=== PATIENT | female | born 1990 | race Two or more races ===

== ENCOUNTER 2016-03-22 09:21 | Emergency (ER) | payer MEDICAID, OTHER ==
[2016-03-22 09:27] VITALS: RESP 16
--- NOTE | 2016-03-22 09:48 | EDPHY ---
H & P Stated Complaint: heavy vaginal bleeding and cramps Time Seen by Provider: 03/22/16 09:45 HPI/ROS: CHIEF COMPLAINT: Vaginal bleeding HISTORY OF PRESENT ILLNESS: This patient is a 25 year old woman, with a history of ectopic and uterine fibroids, presenting with heavy vaginal bleeding, onset three days ago. Bleeding is moderate in volume/severity , using one pad every 30 minutes - 1 hour. It is associated with cramping, back pain, and lightheadedness. She is passing clots. She was evaluated by an GEODETIC ADVISOR three days ago with US and exam at that time. Examination demonstrating enlargement of the fibroid. She has had increased bleeding since the time of that exam. The patient is scheduled for hysterectomy on 04/29/16, scheduled at [facility] in [place]. The patient is post- 4 months. REVIEW OF SYSTEMS: Aside from elements discussed in the HPI, a comprehensive 10-point review of systems was reviewed and is negative. PAST MEDICAL HISTORY: ectopic , unilateral salpingectomy, uterine fibroid, 4 months post-, not nursing. SOCIAL HISTORY: No alcohol recently ALLERGIES: Ceftin and Augmentin VITAL SIGNS: Reviewed by me GENERAL: Well-developed, well-nourished, resting comfortably in no respiratory distress. HEENT: Atraumatic. Eyes: No icterus, no injection. Mouth: moist mucous membranes. No erythema or lesions. Neck: supple with no adenopathy. LUNGS: Clear to auscultation bilaterally, no wheezes, rhonchi or rales. CARDIAC: Regular rate and rhythm, no rubs, murmurs or gallops. ABDOMEN: Soft, nontender, nondistended, bowel sounds normal. BACK: No CVA tenderness. PELVIC: Significant clots in the pelvic vault, which were removed. Blood coming from the os. Left adnexal tenderness on manual exam. EXTREMITIES: No trauma. No edema. Range of motion is normal throughout. NEURO: Alert and oriented, grossly nonfocal. SKIN: Warm and dry, no rash. PSYCHIATRIC: Normal mentation, no agitation. Portions of this note were transcribed by a medical library assistant. I personally performed a history, physical exam, medical decision making, and confirmed accuracy of information the transcribed note. Source: Patient Exam Limitations: No limitations - Personal History LMP (Females 10-55): 22-28 Days Ago Current Tetanus/Diphtheria Vaccine: Unsure Current Tetanus Diphtheria and Acellular Pertussis (TDAP): Unsure - Medical/Surgical History Hx Asthma: No Hx Chronic Respiratory Disease: No Hx Diabetes: No Hx Cardiac Disease: No Hx Renal Disease: No Hx Cirrhosis: No Hx Alcoholism: No Hx HIV/AIDS: No Hx Splenectomy or Spleen Trauma: No Other PMH: previous ectopic // does not use contraceptives,uterine fibroid.Hysterectomy scheduled for 04/01 - Social History Smoking Status: Never smoked Constitutional: Initial Vital Signs Temperature (C) 37.0 C 03/22/16 09:24 Heart Rate 78 03/22/16 09:24 Respiratory Rate 16 03/22/16 09:24 Blood Pressure 108/59 L 03/22/16 09:24 O2 Sat (%) 97 03/22/16 09:24 O2 Delivery Mode Room Air Allergies/Adverse Reactions: No Known Allergies Allergy (Unverified 03/22/16 09:27) Home Medications: Medication Instructions Recorded Hydrocodone/APAP 5/325 [[place] 1 tab PO Q6H PRN #10 tab 03/22/16 5/325 (RX)] IRON,CARBONYL [IRON] 45 mg PO 03/22/16 Turbinophine 03/22/16 medroxyPROGESTERone [Provera 10 mg 10 mg PO DAILY #10 tab 03/22/16 (*)] Medical Decision Making - Diagnostics Imaging: Study: Ultrasound of the: Pelvis Indication: Vaginal bleeding Results: The results of the study are: Intramural uterine leiomyoma with submucosal component (deforming the endometrial lining) has significantly increased in volume since February 2015. Thin endometrial lining. Benign right ovarian cyst. The study was read by the radiologist, Dr. Denton. I viewed the images myself on the PACS system. ED Course/Re-evaluation: The pelvic exam demonstrates significant clot in the vaginal vault. Clot was removed by myself. IV Toradol, TXA, and IV normal saline ordered. Pelvic US demonstrates intramural uterine leiomyoma with submucosal component ( deforming the endometrial lining) has significantly increased in volume since February 2015. GEODETIC ADVISOR paged for consult. 1235: I consulted with Dr. Heard about the patient's condition. She recommends the patient makes an appointment with [place] [facility] [place]. She recommends prescription for Provera 10mg Qday, #10. Plan discussed with the patient who is comfortable with the plan. Reports her bleeding has diminished since the T x-ray. Discharged with [place] to use as needed for severe pain, Provera to help with bleeding, and instructions regarding uses of nonsteroidals. Differential Diagnosis: Differential diagnosis of the patient's vaginal bleeding includes dysfunctional uterine bleeding, trauma, cervicitis, ovarian cysts, uterine fibroids, uterine cancer, cervical cancer, and infection. - Data Points Laboratory Results: Laboratory Results 03/22/16 09:50 03/22/16 09:50 03/22/16 09:50 WBC 6.74 10^3/uL (3.80-9.50) RBC 4.24 10^6/uL (4.18-5.33) Hgb 12.8 g/dL (12.6-16.3) Hct 37.5 L % (38.0-47.0) MCV 88.4 fL (81.5-99.8) MCH 30.2 pg (27.9-34.1) MCHC 34.1 g/dL (32.4-36.7) RDW 13.1 % (11.5-15.2) Plt Count 241 10^3/uL (150-400) Seg Neutrophils % 70 % Band Neutrophils % 2 % Lymphocytes % 25 % Monocytes % 1 % Eosinophils % 2 % Absolute Seg Neuts Not Reported Absolute Band Neuts 0.13 10^3/uL (0.00-0.70) Absolute Lymphocytes 1.69 10^3/uL (1.00-3.00) Absolute Monocytes 0.07 L 10^3/uL (0.30-0.80) Absolute Eosinophils 0.13 10^3/uL (0.03-0.40) Atypical Lymphocytes 1+ H Platelet Estimate ADEQUATE (ADEQ) Polychromasia 1+ H Sodium 142 mEq/L (134-144) Potassium 4.2 mEq/L (3.5-5.2) Chloride 109 mEq/L (97-110) Carbon Dioxide 23 mEq/l (22-31) Anion Gap 10 mEq/L (8-16) BUN 15 mg/dL (7-23) Creatinine 0.6 mg/dL (0.6-1.0) Estimated GFR > 60 Glucose 82 mg/dL (70-100) Calcium 9.2 mg/dL (8.5-10.4) Beta HCG, Quant < 2.39 mIU/mL (0-4.83) Medications Given: Discontinued Medications Sodium Chloride (Ns) 1,000 mls @ 0 mls/hr IV ONCE ONE PRN Reason: Wide Open Stop: 03/22/16 10:52 Last Admin: 03/22/16 10:55 Dose: 1,000 mls Tranexamic Acid 1,000 mg/ (Sodium Chloride) 110 mls @ 660 mls/hr IV ONCE ONE Stop: 03/22/16 11:01 Last Admin: 03/22/16 11:21 Dose: 110 mls Ketorolac Tromethamine (Toradol) 30 mg IVP EDNOW ONE Stop: 03/22/16 10:53 Last Admin: 03/22/16 11:05 Dose: 30 mg Departure - Departure Disposition: Home, Routine, Self-Care Clinical Impression: Vaginal bleeding Leiomyoma of uterus Qualifiers: Uterine leiomyoma location: intramural Qualifier Code: (D25.1) Intramural leiomyoma of uterus Condition: Good Instructions: Uterine Fibroids (ED) Additional Instructions: Follow up with an GEODETIC ADVISOR at [facility], ie. Dr. Escobar's group. Call their office on Thursday to set an appointment. Take the Provera, 10mg daily , as prescribed. Take ibuprofen, 600mg every 6-8 hours, regularly. Take the [place], as prescribed, for severe pain. Return for worsening of condition, increased bleeding, or other concerns. Referrals: Kristin Escobar MD [Medical Doctor] - As per Instructions [facility] [Outside] - As per Instructions Prescriptions: Hydrocodone/APAP 5/325 [[place] 5/325 (RX)] 1 tab PO Q6H PRN #10 tab PRN Reason: Pain medroxyPROGESTERone [Provera 10 mg (*)] 10 mg PO DAILY #10 tab Report Scribed for: Darya Castrejon Report Scribed by: Eunice Magana Date of Report: 03/22/16 Time of Report: 09:48
[2016-03-22 09:59] LABS: HEMATOCRIT 37.5 % (38.0-47.0); HEMOGLOBIN 12.8 g/dL (12.6-16.3); LIPEMIA HEMOLYSIS FLAG 90 (0-99); MEAN CELL HEMOGLOBIN 30.2 pg (27.9-34.1); MEAN CELL HEMOGLOBIN CONCENTR. 34.1 g/dL (32.4-36.7); MEAN CELL VOLUME 88.4 fL (81.5-99.8); PLATELET CLUMPS FLAG 0 (0-99); PLATELET COUNT 241 10^3/uL (150-400); RED BLOOD CELL COUNT 4.24 10^6/uL (4.18-5.33); RED CELL DISTRIBUTION WIDTH 13.1 % (11.5-15.2)
[2016-03-22 10:21] LABS: ANION GAP 10 mEq/L (8-16); CALCIUM 9.2 mg/dL (8.5-10.4); CARBON DIOXIDE 23 mEq/l (22-31); CHLORIDE 109 mEq/L (97-110); CREATININE 0.6 mg/dL (0.6-1.0); GLOMERULAR FILTRATION RATE > 60; GLUCOSE 82 mg/dL (70-100); POTASSIUM 4.2 mEq/L (3.5-5.2); SODIUM 142 mEq/L (134-144)
[2016-03-22] MEDS ORDERED: NS 1,000 ML IV ONE (10:51)
[2016-03-22] MEDS ORDERED: KETOROLAC 30 MG/1 ML SDV IVP ONE (10:52)
[2016-03-22] MEDS ORDERED: TRANEXAMIC ACID 1,000 MG in NS 100 ML IV ONE (10:52)
[2016-03-22 11:39] LABS: PLATELET ESTIMATE ADEQUATE (ADEQ); POLYCHROMASIA 1+
--- NOTE | 2016-03-22 12:10 | US ---
Pelvic Ultrasound Indication: 25-year-old woman with vaginal bleeding for 3 weeks. History of uterine leiomyoma. Technique: Transabdominal and transvaginal imaging. Comparison: Pelvic sonogram and obstetric ultrasound dated February 2015 Findings: Transabdominal Imaging: The anteverted uterus is normal size measuring 9.6 cm in length by 7.5 x 5.3 cm. Trace free fluid. No adnexal mass or pelvic varix. Transvaginal Imaging: An intramural uterine leiomyoma in the left body of the uterus has increased in size since February 2015 and now abuts and deforms the endometrial lining. The suspected uterine leio myoma, measures 3.3 x 4.2 x 3.1 cm and has a total volume of 23 mL (previously measured 1.1 x 1.1 x 1 .0 cm). The endometrial lining is otherwise normal thickness measuring between 0.3 and 1.0 cm. The ovaries are normal size with small peripheral follicles and normal blood flow on Color Doppler im aging. A benign small simple cyst in the right ovary measures 3.3 x 2.7 x 1.8 cm. The right ovary candido sures 4.5 x 3.9 x 2.4 cm. The left ovary measures 3.1 x 1.6 x 1.5 cm. Impression: 1. Intramural uterine leiomyoma with submucosal component (deforming the endometrial lining) has sig nificantly increased in volume since February 2015. 2. Thin endometrial lining. 3. Benign right ovarian cyst. Comment: The results were called to Dr. Cash perez at 1205 p.m. March 22, 2016.
[2016-03-22 13:16] VITALS: BP 108/63; PULSE 73; TEMP 97.9; O2SAT 95
== END 2016-03-22 13:14 | disposition home or self-care (01) ==
DX: N93.9 Abnormal uterine and vaginal bleeding, unspecified (principal); D25.1 Intramural leiomyoma of uterus; Z90.710 Acquired absence of both cervix and uterus
CPT/HCPCS: 96374; J1885